=== PATIENT | male | born 1965 | race Caucasian/White ===

== ENCOUNTER 2021-01-14 08:32 | Inpatient (IN) | payer MEDICAID ==
[~2021-01-14] VITALS: Ht 182.9 cm; Wt 121.1 kg
[~2021-01-14 08:32] MED LIST: TADA5TAB11 PO
[2021-01-14] MEDS ORDERED: HYDROmorphone HCL 2 MG/ML VL ONE (09:26)
[2021-01-14] MEDS ORDERED: PROPOFOL 10 MG/ML 20 ML IV ONE (09:27)
[2021-01-14] MEDS ORDERED: ONDANSETRON HCL 4 MG/2 ML VIAL ONE ×2 (09:27→15:11)
[2021-01-14] MEDS ORDERED: SODIUM CHLORIDE LOCK 10 ML ONE (09:27)
[2021-01-14] MEDS ORDERED: MIDAZOLAM HCL 1MG/1ML-2 ML VIAL ONE (09:27)
[2021-01-14] MEDS ORDERED: fentaNYL CITRATE 100 MCG/2 ML VL ONE (09:27)
[2021-01-14] MEDS ORDERED: fentaNYL CITRATE 5 ML ONE ×2 (09:27→11:56)
[2021-01-14] MEDS ORDERED: ROCURONIUM 10MG/ML 10ML VIAL IV ONE (09:27)
[2021-01-14] MEDS ORDERED: ceFAZolin 1GM/50ML 100 ML IV ONE (09:51)
[2021-01-14] MEDS ORDERED: TRANEXAMIC ACID 10 ML ONE (11:26)
[2021-01-14] MEDS ORDERED: ePHEDrine SULFATE 50 MG/ML AMP ONE (11:27)
[2021-01-14] MEDS ORDERED: hydrALAZINE HCL 20 MG/ML VL ONE (14:24)
[2021-01-14] MEDS ORDERED: hydrALAZINE HCL 20 MG/ML VL IV ONE (14:30)
[2021-01-14] MEDS ORDERED: METOCLOPRAMIDE HCL 5MG/ml INJ 2ml VIAL ONE (15:51)
[2021-01-14] MEDS ORDERED: METOCLOPRAMIDE HCL 5MG/ml INJ 2ml VIAL IV ONE (16:00)
[2021-01-14] MEDS ORDERED: DexAMETHasone SOD PHOS 10MG/1ML VIAL INJ IV ONE (16:00)
[2021-01-14] MEDS ORDERED: ONDANSETRON HCL 4 MG/2 ML VIAL IV ONE (16:00)
[2021-01-14] MEDS ORDERED: ACETAMINOPHEN IV 100 ML IV ONE (16:41)
[2021-01-14] MEDS ORDERED: ACETAMINOPHEN IV 1000 MG/100ML (10MG/ML) IV ONE (16:45)
[2021-01-14] MEDS ORDERED: KETOROLAC TROMETH 30 MG/ML 1ML VIAL IV PRN (17:30)
[2021-01-14] MEDS ORDERED: OXYCODONE W/ ACETAMINOPHEN 5/325MG TABLET PO PRN (17:30)
[2021-01-14] MEDS ORDERED: MORPHINE SULF INJ 2 MG/ML SYRINGE 1ML IV PRN (17:30)
[2021-01-14] MEDS ORDERED: METOCLOPRAMIDE HCL 5MG/ml INJ 2ml VIAL IV PRN (17:30)
[2021-01-14] MEDS ORDERED: NITROGLYCERIN 0.4 MG SL TAB SL PRN (17:30)
[2021-01-14 18:07] VITALS: BP 93/51
[2021-01-14] MEDS: ONDANSETRON HCL 4 MG/2 ML VIAL IV PRN (19:13)
[2021-01-14] MEDS: HYDROmorphone HCL 2 MG/ML VL IV PRN ×2 (19:14→22:29)
[2021-01-14 22:00] VITALS: BP 107/67
[2021-01-14] MEDS: SODIUM CHLOR 0.9% PF (SALINE LOCK) 10ML VIAL/SYR IV SCH (22:21)
[2021-01-15] MEDS: HYDROmorphone HCL 2 MG/ML VL IV PRN ×3 (02:40→09:32)
[2021-01-15] MEDS: ONDANSETRON HCL 4 MG/2 ML VIAL IV PRN ×2 (02:52→09:33)
[2021-01-15 05:00] VITALS: BP 108/61
[2021-01-15] MEDS: SODIUM CHLOR 0.9% PF (SALINE LOCK) 10ML VIAL/SYR IV SCH ×3 (05:49→21:09)
[2021-01-15 09:00] VITALS: BP 122/65
[2021-01-15 12:44] VITALS: BP 130/73
[2021-01-15] MEDS: METOCLOPRAMIDE HCL 5MG/ml INJ 2ml VIAL IV SCH ×2 (14:16→21:09)
[2021-01-15 17:00] VITALS: BP 113/66
[2021-01-15] MEDS: ACETAMINOPHEN 325 MG TAB PO PRN ×2 (17:09→21:06)
[2021-01-15] MEDS: FAMOTIDINE (10MG/ML) 2ML VL IV SCH (21:09)
[2021-01-15 22:00] VITALS: BP 113/68
[2021-01-15] MEDS: HYDROcodone-ACET 5/325MG TAB PO PRN (22:39)
[2021-01-16] MEDS: HYDROcodone-ACET 5/325MG TAB PO PRN (03:58)
[2021-01-16 05:04] VITALS: BP 131/78
[2021-01-16] MEDS: METOCLOPRAMIDE HCL 5MG/ml INJ 2ml VIAL IV SCH ×2 (06:00→15:17)
[2021-01-16] MEDS: SODIUM CHLOR 0.9% PF (SALINE LOCK) 10ML VIAL/SYR IV SCH ×2 (06:11→15:17)
[2021-01-16 06:42] LABS: Eosinophils # (auto) 0 10 ^3/uL (0-0.8); Lymphocytes # (auto) 1.6 10 ^3/uL (0.4-5.4)
[2021-01-16 06:44] LABS: Basophils # (auto) 0.1 10 ^3/uL (0-0.2); Basophils % (auto) 0.7 % (0.0-2.0); Eosinophils % (auto) 0.4 % (0.0-7.0); Hematocrit 36.7 % (41.0-53.0); Hemoglobin 12.7 g/dL (13.5-17.5); Lymphocytes % (auto) 19.8 % (10.0-50.0); Mean Corpuscular Hemoglobin 33.8 pg (28.0-32.0); Mean Corpuscular Hgb Conc. 34.6 g/dL (32.0-36.0); Mean Corpuscular Volume 97.9 fL (80.0-100.0); Monocytes # (auto) 0.9 10 ^3/uL (0-1.3); Monocytes % (auto) 11.5 % (0.0-12.0); Neutrophils # (auto) 5.4 10 ^3/uL (1.6-8.6); Neutrophils % (auto) 67.6 % (37.0-80.0); Nucleated Red Blood Cells % 0.1 %; Red Blood Cells 3.75 10^6/uL (4.5-5.90); Red Cell Distribution Width 14.9 % (11.8-14.3)
[2021-01-16 06:58] LABS: Potassium 3.5 mmol/L (3.5-5.1)
[2021-01-16 07:12] LABS: Albumin 3.2 g/dL (3.4-5.0); BUN/Creatinine Ratio 17.6; Bilirubin, Total 1.2 mg/dL (0.2-1.0); Calcium 8.3 mg/dL (8.5-10.1); Total Protein 6.2 g/dL (6.4-8.2)
[2021-01-16 09:00] VITALS: BP 140/74
[2021-01-16] MEDS: HYDROcodone-ACET 10/325MG TAB PO PRN ×2 (09:06→15:29)
[2021-01-16] MEDS: FAMOTIDINE (10MG/ML) 2ML VL IV SCH (09:58)
[2021-01-16 13:00] VITALS: BP 137/87
[2021-01-16] MEDS ORDERED: ASPI-717 PO (13:07)
[2021-01-16] MEDS ORDERED: HYDR-4072 PO (13:07)
[2021-01-16] MEDS ORDERED: SENN-62 PO (13:07)
[2021-01-16] MEDS ORDERED: ONDA-144 PO (13:09)
[2021-01-16 15:30] VITALS: BP 137/87
== END 2021-01-16 16:01 | disposition home health service (06) | DRG 317 ==
LOC: SUR 08:32 → WEST WING 18:25 → INTOOBSV 18:25 → OBSVTOIN 18:25
PROVIDERS: ADMIT Orthopaedic Surgery; ATTEND Orthopaedic Surgery
PROC: 01NF0ZZ Release Sciatic Nerve, Open Approach (ICD-10-PCS; 2021-01-14)
PROC: 0L8 Tendons, Division (ICD-10-PCS; principal; 2021-01-14 11:02)
DX: S76.311A Strain of muscle, fascia and tendon of the posterior muscle group at thigh level, right thigh, initial encounter (principal); G57.01 Lesion of sciatic nerve, right lower limb; W01.0XXA Fall on same level from slipping, tripping and stumbling without subsequent striking against object, initial encounter; Z20.822 Contact with and (suspected) exposure to COVID-19; G58.8 Other specified mononeuropathies; Y93.89 Activity, other specified; Y92.89 Other specified places as the place of occurrence of the external cause; Z79.899 Other long term (current) drug therapy; Z82.49 Family history of ischemic heart disease and other diseases of the circulatory system; Y99.8 Other external cause status
CPT/HCPCS: 36415; 80053; 85025; 85049; 96374; 96375; 96376; 97116; 97530; G0378; J0131; J0690; J2250; J2405; J2704; J3490

== ENCOUNTER 2021-02-01 06:47 | Day surgery (SDC) | payer MEDICAID ==
[~2021-02-01] VITALS: Ht 182.9 cm; Wt 117.0 kg
[~2021-02-01 06:47] MED LIST changes: +ASPI-717 PO; +HYDR-4072 PO; +ONDA-144 PO; +SENN-62 PO
[2021-02-01] MEDS ORDERED: LIDOCAINE 1% HCL (LOCAL ANESTH.) INJ 20ML MDV ONE (07:02)
[2021-02-01] MEDS ORDERED: SUCCINYLCHOLINE CHLORIDE 20 MG/ML 10ML VIAL IV ONE (07:02)
[2021-02-01] MEDS ORDERED: fentaNYL CITRATE 100 MCG/2 ML VL ONE (07:06)
[2021-02-01] MEDS ORDERED: HYDROmorphone HCL 2 MG/ML VL ONE ×2 (07:06→11:52)
[2021-02-01] MEDS ORDERED: ONDANSETRON HCL 4 MG/2 ML VIAL ONE (07:07)
[2021-02-01] MEDS ORDERED: METOCLOPRAMIDE HCL 5MG/ml INJ 2ml VIAL ONE (07:07)
[2021-02-01] MEDS ORDERED: PROPOFOL 10 MG/ML 20 ML IV ONE (07:07)
[2021-02-01] MEDS ORDERED: SODIUM CHLORIDE LOCK 10 ML ONE (07:07)
[2021-02-01] MEDS ORDERED: DexAMETHasone SOD PHOS 10MG/1ML VIAL INJ ONE (07:07)
[2021-02-01] MEDS ORDERED: fentaNYL CITRATE 5 ML ONE ×2 (07:07→08:44)
[2021-02-01] MEDS ORDERED: MIDAZOLAM HCL 1MG/1ML-2 ML VIAL ONE (07:07)
[2021-02-01] MEDS ORDERED: NEOSTIGMINE 1 MG/ML INJ (10mg/10ML VIAL) ONE (07:07)
[2021-02-01] MEDS ORDERED: ROCURONIUM 10MG/ML 10ML VIAL IV ONE (07:07)
[2021-02-01] MEDS ORDERED: GLYCOPYRROLATE 0.2 MG/ML 1ML VIAL ONE (07:07)
[2021-02-01] MEDS ORDERED: EPINEPHrine HCL 1 MG/1 ML AMP ONE ×3 (07:19→09:46)
[2021-02-01] MEDS ORDERED: BUPIVACAINE 0.5% MPF INJ 30ML SDV IJ ONE ×2 (07:19→07:30)
[2021-02-01] MEDS ORDERED: MORPHINE SULFATE 4 MG/ML SYR/VIAL IV PRN (07:30)
[2021-02-01] MEDS ORDERED: METOCLOPRAMIDE HCL 5MG/ml INJ 2ml VIAL IV PRN (07:30)
[2021-02-01] MEDS ORDERED: HYDROmorphone HCL 2 MG/ML VL IV PRN (07:30)
[2021-02-01] MEDS ORDERED: ceFAZolin 1GM/50ML 100 ML IV ONE (07:36)
[2021-02-01] MEDS ORDERED: ACETAMINOPHEN IV 100 ML IV ONE (11:54)
[2021-02-01] MEDS ORDERED: ACETAMINOPHEN IV 1000 MG/100ML (10MG/ML) IV ONE (12:00)
[2021-02-01 13:30] VITALS: BP 120/72
== END 2021-02-01 13:45 | disposition home or self-care (01) ==
LOC: SUR 06:47
PROVIDERS: ATTEND Orthopaedic Surgery Sports Medicine
DX: S46.212A Strain of muscle, fascia and tendon of other parts of biceps, left arm, initial encounter (principal); M75.102 Unspecified rotator cuff tear or rupture of left shoulder, not specified as traumatic; Z68.35 Body mass index [BMI] 35.0-35.9, adult; Z20.822 Contact with and (suspected) exposure to COVID-19; E66.9 Obesity, unspecified; X58.XXXA Exposure to other specified factors, initial encounter; Y93.89 Activity, other specified; Y92.89 Other specified places as the place of occurrence of the external cause; Y99.8 Other external cause status
CPT/HCPCS: 29826; 29827; 29828; 86850; 86900; 86901; C1713; J0131; J0171; J0330; J0690; J1100; J1170; J2001; J2250; J2405; J2704; J2765; J3010; J3490; U0003; A4565

== ENCOUNTER 2025-01-31 03:55 | Emergency (ER) | payer MEDICAID ==
[~2025-01-31] VITALS: Ht 182.9 cm; Wt 131.8 kg
--- NOTE | 2025-01-31 04:03 | ED.PDOC ---
Eye-HPI HPI Comments Pt c/o sore throat x6 days. Pt reports painful swallowing, worse today. Rates pain 5/10. Denies any fevers, cough, chest pain, sob or soraida Chief Complaint: Sore Throat Time Seen by MD: 03:58 Reviewed Notes: Nurses Notes, Medications, Allergies Allergies: Coded Allergies: NO KNOWN ALLERGIES (Unverified , 01/12/21) Home Meds Active Scripts Methylprednisolone (Medrol Dosepak) 4 Mg Sae, 4 MG PO UD for 6 Days, #21 TAB UAD Prov:STEFANIA EGAN 01/31/25 Ondansetron (Zofran) 4 Mg Tab, 1 TAB PO Q6HR PRN, #20 TAB Prov:APOLONIA MCDERMOTT MD 01/16/21 Aspirin Buffered (Omar Carb-Mag (Aspirin 325 mg) 1 Tab Tab, 1 TAB PO DAILY, #30 TAB Prov:APOLONIA MCDERMOTT MD 01/16/21 Sennosides-Docusate Sodium (Senokot S) 1 Tab Tab, 1 TAB PO BID, #30 TAB Prov:APOLONIA MCDERMOTT MD 01/16/21 Hydrocodone-Acetaminophen (Hydrocodone/Acetaminophen 10-325 mg) 1 Tab Tab, 1 TAB PO Q6HP PRN, #20 TAB Prov:APOLONIA MCDERMOTT MD 01/16/21 Reported Medications Tadalafil (Cialis) 5 Mg Tab, 0 PO PRN, TAB 01/12/21 Discontinued Scripts Azithromycin (Azithromycin) 500 Mg Tab, 1 TAB PO DAILY for 5 Days, #5 TAB Prov:STEFANIA EGAN 01/31/25 Information Source: Patient Past Medical History PAST MEDICAL HISTORY: Denies Surgical History: Denies all surgeries Family History Family History: Reviewed,noncontributory to illness Social History Smoker: Non-Smoker Alcohol: Denies ETOH Use Drugs: Denies Drug Use Constitutional: denies: chills, diaphoresis, fatigue, fever, malaise, sweats, weakness, others EENTM: reports: throat pain, throat swelling; denies: blurred vision, double vision, ear bleeding, ear discharge, ear drainage, ear pain, ear ringing, eye pain, eye redness, hearing loss, mouth pain, mouth swelling, nasal discharge, n ose bleeding, nose congestion, nose pain, photophobia, tearing, voice changes, others Respiratory: denies: cough, hemoptysis, orthopnea, SOB at rest, shortness of breath, SOB with excertion, stridor, wheezing, others Cardiovascular: denies: chest pain, dizzy spells, diaphoresis, Dyspnea on exertion, edema, irregular heart beat, left arm pain, lightheadedness, palpitations, PND, syncope, others Gastrointestinal: denies: abdomen distended, abdominal pain, blood streaked bowels, constipated, diarrhea, dysphagia, difficulty swallowing, hematemesis, melena, nausea, poor appetite, poor fluid intake, rectal bleeding, rectal pain, vomiting, others Genitourinary: denies: burning, dysuria, flank pain, frequency, hematuria, incontinence, penile discharge, penile sore, pain, testicle pain, testicle swelling, urgency, others Neurological: denies: dizziness, fainting, headache, left sided numbness, left sided weakness, numbness, paresthesia, pre-existing deficit, right sided numbness, right sided weakness, seizure, speech problems, tingling, tremors, weakness, others Musculoskeletal: denies: back pain, gout, joint pain, joint swelling, muscle p ain, muscle stiffness, neck pain, others Integumetry: denies: bruises, change in color, change in hair/nails, dryness, laceration, lesions, lumps, rash, wounds, others Allergic/Immunocompromised: denies: Difficulty Healing, Frequent Infections, Hives, Itching, others Hematologic/Lymphatic: denies: anemia, blood clots, easy bleeding, easy bruising, swollen glands, others Endocrine: denies: excessive hunger, excessive sweating, excessive thirst, excessive urination, flushing, intolerance to cold, intolerance to heat, unexplained weight gain, unexplained weight loss, others Psychiatric: denies: anxiety, bipolar disorder, depression, hopeless, panic disorder, schizophrenia, sleepless, suicidal, others Physical Exam General Appearance: No Apparent Distress, Normal HEENT: Pharyngeal Erythema, TMs Normal Neck: Full Range of Motion, Non-Tender Respiratory: Lungs Clear, No Respiratory Distress, Normal Breath Sounds Cardiovascular: No Murmur, Normal Peripheral Pulses, Regular Rate/Rhythm Breast Exam: Deferred Gastrointestinal: Non Tender, Soft Genitalia: Deferred Pelvic: Deferred Rectal: Deferred Extremities: Normal capillary refill, Normal range of motion Musculoskeletal : Apperance: Normal Neurologic: Alert, No Motor Deficits, Normal Affect, Normal Mood, No Sensory Deficits Cerebellar Function: Normal Reflexes: Normal Skin: Dry, Normal Color, Warm Lymphatic: No Adenopathy Was a procedure done? Was a procedure done?: No EENT DIFF Eye: N/A Sore Throat: Peritonsillar Abscess, Peritonsillar Cellulitis, Pharyngitis, Streptococcal, Viral Pharyngitis, URI X-Ray, Labs, Meds, VS Vital Signs Date Time Temp Pulse Resp B/P (MAP) Pulse Ox O2 Delivery O2 Flow Rate FiO2 01/31/25 04:05 99.1 67 18 153/94 (113) 96 99.1 01/31/25 04:05 Room Air* 0 21 01/31/25 04:01 99.1 67 18 153/94 (113) 96 99.1 X-Ray, Labs, Meds, VS Comment Patient given Decadron 10 mg IM and ceftriaxone 1 g IM reports improvement in symptoms requesting discharge at this time. Script trial of antibiotics advised to take medications as prescribed side effects discussed. Advised to rest increase p.o. fluids with electrolytes. [id number] Tylenol or Motrin as needed for the pain per labeled dosing instructions. Follow up with your PCP in 2-3 days as necessary. ER return precautions given patient indicates understanding agrees with discharge of care. Time of 1ST Reevaluation: 04:02 Reevaluation 1ST: Unchanged Time of 2ND Reevaluation: 04:05 Reevaluation 2ND: Improved Patient Education/Counseling: Diagnosis, Treatment, Prognosis, Need For Follow Up Family Education/Counseling: Diagnosis, Treatment, Prognosis, Need For Follow Up SEPSIS Sepsis Screen Vital Signs Date Time Temp Pulse Resp B/P (MAP) Pulse Ox O2 Delivery O2 Flow Rate FiO2 01/31/25 04:05 99.1 67 18 153/94 (113) 96 99.1 01/31/25 04:05 Room Air* 0 21 01/31/25 04:01 99.1 67 18 153/94 (113) 96 99.1 Departure 1 Departure Time of Disposition: 04:07 Impression: Primary Impression: Pharyngitis Qualified Codes: J02.9 - Acute pharyngitis, unspecified Disposition: 01 HOME / SELF CARE / HOMELESS Condition: Stable e-Prescriptions Methylprednisolone (Medrol Dosepak) 4 Mg Sae 4 MG PO UD for 6 Days, #21 TAB UAD Prov: STEFANIA EGAN 01/31/25 Discharged With: Self Critical Care Note Critical Care Time?: No Stability Stability form required: STEFANIA Cm Jan 31, 2025 04:03
[2025-01-31 04:05] VITALS: BP 153/94; PULSE 67; RESP 18; TEMP 99.1; O2SAT 96
[2025-01-31] MEDS ORDERED: AZIT500T66 PO (04:07)
[2025-01-31] MEDS ORDERED: METH4PAK PO (04:07)
[2025-01-31] MEDS: cefTRIAXone SOD 1,000 MG VL IM ONE (04:16)
== END 2025-01-31 04:23 | disposition home or self-care (01) ==
LOC: ER 03:55
DX: J02.9 Acute pharyngitis, unspecified (principal)
CPT/HCPCS: 96372; 99284; J0696; J1100